=== PATIENT | female | born 1970 | race Caucasian/White ===

== ENCOUNTER 2017-01-28 14:38 | Emergency (ER) | payer OTHER ==
[~2017-01-28] VITALS: Ht 157.5 cm; Wt 103.4 kg
--- NOTE | 2017-01-28 16:01 | NUR ---
Patient discharged to home in stable conditon. Written and verbal after care instructions given. Patient verbalizes understanding of instructions.PT SAYS FEELS BETTER, ACCOMPANIED BY FAMILY MEMBER.
[2017-01-28 16:02] VITALS: BP 131/81
== END 2017-01-28 16:03 | disposition home or self-care (01) ==
LOC: ER 14:53
DX: R06.02 Shortness of breath (principal); R07.9 Chest pain, unspecified; E66.9 Obesity, unspecified; R05 Cough
CPT/HCPCS: 71020; 93005; A4663